=== PATIENT | female | born 1990 | race Caucasian/White ===

== ENCOUNTER 2022-01-12 09:29 | Outpatient (CLI) | payer BC ==
[2022-01-12 10:30] LABS: Appearance,Urine Clear (Clear); Bacteria,Urine Rare /hpf; Bilirubin,Urine Negative (Negative); Blood,Urine Negative (Negative); Color,Urine Colorless; Glucose,Urine (UA) Negative (Negative); Ketones,Urine Negative (Negative); Leukocyte Esterase,Urine Moderate (Negative); Nitrite,Urine Negative (Negative); PH, Urine 6.5 (5.0-8.0); Protein,Urine Negative (Negative); Specific Gravity,Urine 1.005 (1.001-1.035); Squamous Epithelial Cell,Urine 3 /hpf (0-4); Urobilinogen,Urine <2.0 mg/dL (<2.0); WBC,Urine 2 /hpf (0-5)
[2022-01-12 10:39] LABS: Basophils % (A) 0 %; Eosinophils # (A) 0.1 k/uL (0-0.7); Eosinophils % (A) 1 %; HCT 36.4 % (34.0-46.0); HGB 12.4 gm/dL (11.4-16.0); Lymphocytes # (A) 1.8 k/uL (1.0-4.8); Lymphocytes % (A) 17 %; MCH 29.6 pg (25.0-35.0); MCHC 34.2 g/dL (31.0-37.0); MCV 86.6 fL (80.0-100.0); Mean Platelet Volume 9.2; Monocytes # (A) 0.6 k/uL (0-1.0); Monocytes % (A) 5 %; Neutrophils # (A) 7.8 k/uL (1.3-7.7); Neutrophils % (A) 75 %; Platelet Count 312 k/uL (150-450); RDW 13.1 % (11.5-15.5); WBC 10.4 k/uL (3.8-10.6)
[2022-01-12 10:55] LABS: Creatinine,Urine Random 24.8 mg/dL
[2022-01-12 10:58] LABS: ALT 12 U/L (4-34); AST 17 U/L (14-36); African American GFR (CKD) >90 (>60 ml/min/1.73 sqM); Blood Urea Nitrogen 7 mg/dL (7-17); LDH 348 U/L (313-618); Non-African American GFR(CKD) >90 (>60 ml/min/1.73 sqM)
[2022-01-12 11:21] LABS: Creatinine,Urine Random 24.8 mg/dL; Protein/Creatinine Ratio,Urine 0.444
[2022-01-12 12:04] VITALS: BP 151/105; PULSE 125; RESP 16; TEMP 98.4
--- NOTE | 2022-02-02 20:44 | P.MSEPDOC ---
Presenting Problems - Arrival Data Date of Arrival on Unit: 01/12/22 Time of Arrival on Unit: 09:29 Mode of Transport: Ambulatory - Complaint OB-Reason for Admission/Chief Complaint: Elevated Blood Pressure Medical History - Information : 1 Para: 0 Term: 0 : 0 Abortions: Spontaneous or Elective: 0 Number of Living Children: 0 - Gestational Age Gestational Age by CASANDRA (wks/days): 34 Weeks and 3 Days Review of Systems - Review of Systems Constitutional: No problems Breast: No problems ENT: No problems Cardiovascular: No problems Respiratory: No problems Gastrointestinal: No problems Genitourinary: No problems Musculoskeletal: No problems Neurological: No problems Skin: No problems Vital Signs - Temperature Temperature: 98.4 F Temperature Source: Axillary - Pulse Right Sitting Pulse Rate: 125 Pulse Assessment Method: Automatic Cuff - Respirations Respiratory Rate: 16 Oxygen Delivery Method: Room Air O2 Sat by Pulse Oximetry: 98 - Blood Pressure Right Arm Blood Pressure: 151/105 Blood Pressure Mean: 120 Blood Pressure Source: Automatic Cuff Medical Screen Scoring - Assessment - Baby A Baseline FHR: 155 Heart Rate - NICHD Category: Category I (Normal) NST: Reactive Physician Notification - Physician Notified Physician Notified Date: 01/12/22 Physician Notified Time: 11:32 Physician: Elle Villeda New Order Received: Yes (d/c home) - Notification Comment Comment: procardia 30mg to be called in today. Pt has appt in office tomorrow am Maternal Triage Index - Urgent/Priority 2 Urgent Priority 2: Yes Provider Notified: Elle Villeda Provider Notified Time: 10:02 Criteria Met for Priority 2: reactive nst, bps 130-140's/80-90's, with two 150/100's. non-pitting edema, previous headache, relieved with baby aspirin this am. P/C ratio 0.444, all other labs wnl. Disposition - Disposition OB Disposition: Discharge to home, Written follow up instructions reviewed Discharge Date: 01/12/22 Discharge Time: 11:43 I agree with the RN Medical Screening Exam: Yes Physician's MSE Comment: I have neither seen nor examined the patient. Case reviewed; plan agreed upon as documented in EMR&OBIX.: Yes Diagnosis: UNSP TRACT INFECTION IN , THIRD TRIMESTER
== END 2022-01-12 11:43 | disposition home or self-care (01) ==
LOC: FBPOP 09:29
PROVIDERS: ATTEND Obstetrics & Gynecology
DX: O26.893 Other specified pregnancy related conditions, third trimester (principal); Z3A.34 34 weeks gestation of pregnancy; O23.43 Unspecified infection of urinary tract in pregnancy, third trimester
CPT/HCPCS: 59025; 81001; 82565; 82570; 83615; 84156; 84450; 84460; 84520; 84550; 85025; 99215

== ENCOUNTER 2022-02-02 05:54 | Inpatient (IN) | payer BC ==
[2022-02-02] MEDS ORDERED: LIDOCAINE 0.5% (PF) 5 MG/ML (50 ML SDV) SQ PRN ×2 (06:05→08:23)
[2022-02-02] MEDS ORDERED: TERBUTALINE 1 MG/ML VIAL SQ PRN ×2 (06:05→08:23)
[2022-02-02] MEDS ORDERED: OXYTOCIN 30 UNITS/500 ML NS 30 UNIT in SALINE 1 500ML.BAG IV SCH ×2 (06:15→22:45)
[2022-02-02] MEDS: LACTATED RINGERS 1,000 ML IV SCH ×4 (06:28→19:08)
[2022-02-02 06:47] LABS: Basophils % (A) 0 %; Eosinophils # (A) 0.1 k/uL (0-0.7); Eosinophils % (A) 1 %; HCT 35.7 % (34.0-46.0); HGB 12.2 gm/dL (11.4-16.0); Lymphocytes # (A) 3.2 k/uL (1.0-4.8); Lymphocytes % (A) 26 %; MCH 29.1 pg (25.0-35.0); MCHC 34.1 g/dL (31.0-37.0); MCV 85.2 fL (80.0-100.0); Mean Platelet Volume 9.2; Monocytes # (A) 0.8 k/uL (0-1.0); Monocytes % (A) 6 %; Neutrophils # (A) 7.8 k/uL (1.3-7.7); Neutrophils % (A) 64 %; Platelet Count 355 k/uL (150-450); RBC 4.18 m/uL (3.80-5.40); RDW 12.5 % (11.5-15.5); WBC 12.3 k/uL (3.8-10.6)
[2022-02-02 08:01] LABS: ALT 11 U/L (4-34); AST 19 U/L (14-36); African American GFR (CKD) >90 (>60 ml/min/1.73 sqM); Albumin 3.2 g/dL (3.5-5.0); Alkaline Phosphatase 157 U/L (38-126); Anion Gap 6 mmol/L; Blood Urea Nitrogen 9 mg/dL (7-17); Calcium 8.6 mg/dL (8.4-10.2); Carbon Dioxide 19 mmol/L (22-30); Chloride 110 mmol/L (98-107); Glucose 78 mg/dL (74-99); Non-African American GFR(CKD) >90 (>60 ml/min/1.73 sqM); Potassium 4.1 mmol/L (3.5-5.1); Sodium 135 mmol/L (137-145); Total Bilirubin 0.3 mg/dL (0.2-1.3); Total Protein 5.8 g/dL (6.3-8.2); Uric Acid 5.6 mg/dL (3.7-7.4)
--- NOTE | 2022-02-02 08:24 | P.HPOB ---
History of Present Illness H&P Date: 02/02/22 Chief Complaint: Medical Induction of Labor Ms. Salazar is a 31 year old at 37 weeks, 3 days with EDC of 02/20/2022 who presents for medical induction of labor for pre-eclampsia without severe features. Blood pressures began to be elevated earlier in the third trimester, she was evaluated with [facility] labs which showed an elevated urine protein creatinine ratio of . The patient was started on Procardia XL 30mg daily on 01/15 for intermittently severe-range blood pressures. Blood pressures have been normotensive to mild-range after starting this medications. Otherwise, has been uncomplicated. labs show blood type O positive, antibody negative, rubella NON-IMMUNE, HBsAG neg, GBS positive, HIV non-reactive, RPR non-reactive, 1 hr GTT 138. Past Medical History Past Medical History: No Reported History History of Any Multi-Drug Resistant Organisms: None Reported Past Surgical History: Tonsillectomy Additional Past Surgical History / Comment(s): left ankle surgery Past Anesthesia/Blood Transfusion Reactions: No Reported Reaction Past Psychological History: No Psychological Hx Reported Smoking Status: Never smoker Past Alcohol Use History: None Reported Past Drug Use History: None Reported - Past Family History Mother Family Medical History: Cancer Additional Family Medical History / Comment(s): breast Medications and Allergies Home Medications Medication Instructions Recorded Confirmed Type Aspirin 81 mg PO DAILY 01/12/22 02/02/22 History Iron 1 tab PO DAILY 01/12/22 02/02/22 History Vit No.179/Iron/Folic 1 tab PO DAILY 01/12/22 02/02/22 History [ Tablet] NIFEdipine [Procardia] 30 mg PO DAILY 02/02/22 02/02/22 History Allergies Allergy/AdvReac Type Severity Reaction Status Date / Time No Known Allergies Allergy Verified 02/02/22 06:04 Exam Vital Signs Temp Pulse Resp BP Pulse Ox 02/02/22 06:21 98.5 F 97 18 137/105 99 Intake and Output 02/01/22 02/02/22 02/02/22 22:59 06:59 14:59 Other: Weight 92.986 kg Focused physical exam is performed - OBG Physical Exam Cervix: Cervix closed, long, and high. [employer] catheter is placed, 60 cc in each balloon. Results Result Diagrams: 02/02/22 06:20 02/02/22 07:03 Abnormal Lab Results - Last 24 Hours (Table) 02/02/22 02/02/22 Range/Units 06:20 07:03 WBC 12.3 H (3.8-10.6) k/uL Neutrophils # 7.8 H (1.3-7.7) k/uL Sodium 135 L (137-145) mmol/L Chloride 110 H (98-107) mmol/L Carbon Dioxide 19 L (22-30) mmol/L Alkaline Phosphatase 157 H (38-126) U/L Total Protein 5.8 L (6.3-8.2) g/dL Albumin 3.2 L (3.5-5.0) g/dL Assessment and Plan Assessment: 31 y/o at 37 weeks, 3 days presenting for mIOL for pre-eclamspia without severe-features Plan: - Cooks catheter placed, maintain for 12 hours or until its falls out of place. Low dose oxytocin. NPO, mIVF. IV stadol prn pain. Continuous EFM. Time with Patient: Greater than 30
[2022-02-02] MEDS ORDERED: BUTORPHANOL 1 MG/ML 1 ML VIAL IV PRN (08:26)
[2022-02-02] MEDS ORDERED: PENICILLIN G POTASSIUM 5,000,000 UNIT in DEXTROSE 5% IN WATER 100 ML IVPB STA ×2 (11:17)
[2022-02-02 12:17] LABS: Appearance,Urine Clear (Clear); Bilirubin,Urine Negative (Negative); Blood,Urine Negative (Negative); Color,Urine Light Yellow; Glucose,Urine (UA) Negative (Negative); Ketones,Urine Negative (Negative); Leukocyte Esterase,Urine Negative (Negative); Nitrite,Urine Negative (Negative); PH, Urine 5.5 (5.0-8.0); Protein,Urine Negative (Negative); Specific Gravity,Urine 1.007 (1.001-1.035); Urobilinogen,Urine <2.0 mg/dL (<2.0)
[2022-02-02 12:29] LABS: Creatinine,Urine Random 48.2 mg/dL; Protein/Creatinine Ratio,Urine 0.207
[2022-02-02] MEDS: PENICILLIN G POTASSIUM 2,500,000 UNIT in DEXTROSE 5% IN WATER 100 ML IVPB SCH ×4 (16:47→23:54)
[2022-02-02] MEDS ORDERED: SODIUM CHLORIDE 0.9% 100 ML BAG ONE (18:22)
[2022-02-02] MEDS ORDERED: fentaNYL (PF) 50 MCG/ML 5 ML AMP ONE (18:22)
[2022-02-02] MEDS ORDERED: ROPIVACAINE 5 MG/ML 20 ML AMPULE ONE (18:22)
[2022-02-02] MEDS ORDERED: diphenhydrAMINE 50 MG/ML 1 ML VIAL IVP PRN ×3 (19:19→22:35)
[2022-02-02] MEDS ORDERED: MORPHINE SULFATE 2 MG/ML SYRINGE IVP PRN (19:19)
[2022-02-02] MEDS ORDERED: NALOXONE 0.4 MG/ML 1 ML VIAL IV PRN (19:19)
[2022-02-02] MEDS ORDERED: ONDANSETRON 4 MG/2 ML VIAL IVP PRN (19:19)
--- NOTE | 2022-02-02 22:34 | P.PROBDLV ---
Vaginal Delivery Note - . Vaginal Delivery Note: DATE OF SERVICE: 02/02/2022 PROCEDURE: Spontaneous Vaginal Delivery ATTENDING: Dr. Elle Villeda MD ESTIMATED BLOOD LOSS: 200 mL FINDINGS: VFI, Apgars 8/9 PROCEDURE: Patient was a 31 y/o at 37 weeks, 3 days being medically induced for pre-eclamspia without severe features. Induction was started with a cooks catheter and low dose oxytocin. After the cooks catheter was removed the patient was 5/90/-2 and AROM was undertaken for clear fluid. Within 90 minutes the patient was completely dilated. She pushed the head effectively. Head delivered without difficulty followed by shoulders and body over intact perineum. Infant placed on maternal abdomen and bulb suctioned. Cord was clamped and cut after a 30 second delay. Placenta delivered whole with gentle cord traction. Oxytocin was started to facilitate uterine tone. Uterine fundus firm and bleeding minimal upon fundal massage. Perineal inspection revealed second degree laceration repaired in the usual fashion with 2-0 Polysorb. Patient stable .
[2022-02-02] MEDS ORDERED: HYDROcodone/APAP 5-325MG 1 EACH TAB PO PRN (22:35)
[2022-02-02] MEDS ORDERED: HYDROCORTISONE 2.5% RECTAL CREAM 30 GM TUBE RECTAL PRN (22:35)
[2022-02-02] MEDS ORDERED: LANOLIN CREAM 5 GM TUBE TOPICAL PRN (22:35)
[2022-02-02] MEDS ORDERED: ACETAMINOPHEN TAB 325 MG TAB PO PRN (22:35)
[2022-02-02] MEDS ORDERED: diphenhydrAMINE 25 MG CAP PO PRN (22:35)
[2022-02-02] MEDS ORDERED: SIMETHICONE 80 MG CHEWABLE PO PRN (22:35)
[2022-02-02] MEDS ORDERED: BENZOCAINE/MENTHOL SPRAY 1 GM/SPRAY AEROSOL TOPICAL PRN (22:35)
[2022-02-02] MEDS ORDERED: ZOLPIDEM 5 MG TAB PO PRN (22:35)
[2022-02-02] MEDS ORDERED: diphenhydrAMINE 50 MG CAP PO PRN (22:35)
[2022-02-02] MEDS: IBUPROFEN 600 MG TAB PO PRN (23:04)
[2022-02-02] MEDS ORDERED: hydrALAZINE HCL 20 MG/ML 1 ML VIAL IVP STA (23:18)
[2022-02-02] MEDS ORDERED: MAGNESIUM SULFATE GM 6 GM in SODIUM CHLORIDE 0.9% 100 ML IVPB ONE (23:30)
[2022-02-03] MEDS: MAGNESIUM SULFATE-WATER PMX 20 GM in WATER FOR INJECTION 1 500ML.BAG IV SCH ×3 (00:08→21:09)
[2022-02-03] MEDS: PENICILLIN G POTASSIUM 2,500,000 UNIT in DEXTROSE 5% IN WATER 100 ML IVPB SCH ×2 (00:09)
[2022-02-03] MEDS: LACTATED RINGERS 1,000 ML IV SCH (01:59)
[2022-02-03 06:13] LABS: Basophils % (A) 0 %; Eosinophils # (A) 0.1 k/uL (0-0.7); Eosinophils % (A) 0 %; HCT 33.9 % (34.0-46.0); HGB 11.6 gm/dL (11.4-16.0); Lymphocytes # (A) 2.4 k/uL (1.0-4.8); Lymphocytes % (A) 13 %; MCH 29.2 pg (25.0-35.0); MCHC 34.2 g/dL (31.0-37.0); MCV 85.3 fL (80.0-100.0); Mean Platelet Volume 9.4; Monocytes # (A) 1.3 k/uL (0-1.0); Monocytes % (A) 7 %; Neutrophils # (A) 14.8 k/uL (1.3-7.7); Neutrophils % (A) 78 %; Platelet Count 365 k/uL (150-450); RBC 3.97 m/uL (3.80-5.40); RDW 12.6 % (11.5-15.5)
[2022-02-03] MEDS: SENNOSIDES-DOCUSATE SODIUM 1 EACH TAB PO SCH ×2 (08:47→20:32)
--- NOTE | 2022-02-03 09:47 | P.PNOBGVD ---
Subjective - Subjective Principal diagnosis: Normal vaginal delivery Interval history: Immediately after delivery yesterday evening the patient began to have persistent severe-range blood pressures and preeclampsia with severe features was diagnosed. She was started on Magnesium Sulfate and given 10mg of IV hydralazine. The patient is doing well this morning, denies headache, changes in vision, RUQ pain. She is tolerating PO without nausea or vomiting. She's ambulating normally, voiding without difficulty, passing flatus, without difficulty. Lochia is minimal. She denies chest pain, shortness of breath, fevers, chills, pain/swelling in the legs. Objective - Latest Vital Signs Latest vital signs: Vital Signs Temp Pulse Resp BP Pulse Ox 02/03/22 09:00 108 H 16 138/89 02/03/22 08:00 98.7 F 112 H 16 154/93 100 02/03/22 06:00 98.1 F 114 H 18 140/78 99 02/03/22 05:00 101 H 18 124/66 02/03/22 04:00 112 H 18 134/74 99 02/03/22 03:00 134 H 16 124/73 97 02/03/22 02:00 136 H 16 126/71 97 02/03/22 01:00 131 H 18 143/81 97 02/03/22 00:35 127 H 18 145/69 99 02/03/22 00:20 97.9 F 129 H 18 142/72 98 02/03/22 00:19 98 02/03/22 00:05 129 H 18 144/71 98 02/03/22 00:00 16 02/02/22 23:54 121 H 16 156/88 02/02/22 23:50 106 H 16 161/91 99 02/02/22 23:24 123 H 16 173/83 02/02/22 23:09 98.8 F 112 H 16 174/83 02/02/22 22:54 98.7 F 118 H 16 183/80 02/02/22 22:39 117 H 16 186/82 02/02/22 22:24 98.2 F 126 H 18 169/78 02/02/22 19:19 18 Intake and Output 02/02/22 02/03/22 02/03/22 22:59 06:59 14:59 Intake Total 1167 Output Total 200 755 Balance -200 412 Intake: Intake, IV Titration 167 Amount Oxytocin 30 Units/500 ml 167 Ns 30 unit In Saline 1 500ml.bag @ Per Protocol IV .Q0M [facility] Rx#:[id number] Oral 1000 Output: Urine 200 650 Output, Quantitative 105 Blood Loss Other: # Voids 0 1 - Exam Extremities: Present: normal Abdomen: Present: normal appearance, soft Uterus: Present: normal, firm - Labs Labs: Abnormal Lab Results - Last 24 Hours (Table) 02/03/22 Range/Units 05:57 WBC 19.0 H (3.8-10.6) k/uL Hct 33.9 L (34.0-46.0) % Neutrophils # 14.8 H (1.3-7.7) k/uL Monocytes # 1.3 H (0-1.0) k/uL Assessment and Plan Assessment: 31 y.o now PPD#1 s/p normal vaginal delivery after mIOL for preclampsia without severe features, now with new diagnosis of PreE WITH severe features Plan: 1. PreE w/ SF: currently on Mag Sulfate x24 hours. Continue Procardia XL 30mg qDay. BPs normotensive to mild-range overnight s/p IV Hydralazine x1. Continue to monitor BPs, signs, and symptoms 2. . Patient meeting all milestones appropriately. 3. Viable female . Doing well at the bedside, nursing well. Dispo: Will anticipate discharge home late tomorrow evening if BPs well controlled after Mag Sulfate is discontinued.
[2022-02-03] MEDS: IBUPROFEN 600 MG TAB PO PRN ×2 (10:58→16:14)
[2022-02-03] MEDS: NIFEdipine XL 30 MG TAB.ER.24 PO SCH (10:58)
[2022-02-04] MEDS: LACTATED RINGERS 1,000 ML IV SCH (01:48)
[2022-02-04] MEDS: IBUPROFEN 600 MG TAB PO PRN (07:21)
[2022-02-04] MEDS: NIFEdipine XL 30 MG TAB.ER.24 PO SCH (09:00)
[2022-02-04] MEDS: SENNOSIDES-DOCUSATE SODIUM 1 EACH TAB PO SCH (09:01)
--- NOTE | 2022-02-04 13:13 | P.PNOBGVD ---
Subjective - Subjective Principal diagnosis: Normal vaginal delivery Patient reports: Reports appetite normal, Reports voiding normally, Reports pain well controlled, Reports ambulating normally [place]: doing well, nursing well, other (receiving phototherapy) Objective - Latest Vital Signs Latest vital signs: Vital Signs Temp Pulse Resp BP Pulse Ox 02/04/22 00:00 98.7 F 92 16 133/76 100 02/03/22 22:00 105 H 16 148/78 100 02/03/22 21:00 101 H 16 140/79 100 02/03/22 20:00 104 H 16 157/84 100 02/03/22 18:00 103 H 16 142/75 02/03/22 15:30 97.8 F 100 16 138/71 Intake and Output 02/03/22 02/04/22 02/04/22 22:59 06:59 14:59 Intake Total 500 Output Total 1750 Balance -1250 Intake: Intake, IV Titration 500 Amount Magnesium Sulfate-Water 500 Pmx 20 gm In Water For Injection 1 500ml.bag @ 2 GM/HR 50 mls/hr IV .Q10H [facility] Rx#:[id number] Output: Urine 1750 Other: # Voids 1 0 1 - Exam Extremities: Present: normal Abdomen: Present: normal appearance, soft Uterus: Present: normal, firm Assessment and Plan Assessment: 31 y.o now PPD#2 s/p normal vaginal delivery after mIOL for preclampsia without severe features, now with new diagnosis of PreE WITH severe features Plan: 1. PreE w/ SF: s/p Mag Sulfate. Continue Procardia XL 30mg qDay. BPs normotensive to mild-range overnight. 2. . Patient meeting all milestones appropriately. 3. Viable female infant. Doing well at the bedside, nursing well. Finishing photothereapy today. Dispo: Will anticipate discharge home late this afternoon as long as BPs less than or equal to 150/90
--- NOTE | 2022-02-04 13:21 | P.DS ---
Providers Date of admission: 02/02/22 05:54 Expected date of discharge: 02/04/22 Attending physician: Elle Villeda MD Primary care physician: Stated None Hospital Course: 31 y/o now s/p medical induction of labor for preeclampsia without severe features. The patient progressed well and went on to have a normal vaginal delivery. Shortly after delivery she developed preeclampsia with severe features and was started on 24 hours of magnesium sulfate for seizure prophylaxis. She was continued on her dose of daily procardia xl 30 mg. After the Mag was discontinued, blood pressure were normotensive to mild range. She was asymptomatic and meeting all milestones appropriately. She is discharge on day 2 with plans to follow up in the office in 1 week for BP check and in 6 weeks for appointment. Patient Condition at Discharge: Good Plan - Discharge Summary Discharge Rx Participant: No New Discharge Prescriptions: New RX: NIFEdipine XL [Procardia XL] 30 mg PO DAILY #30 tab RX: Ibuprofen [Motrin] 600 mg PO Q6HR PRN #30 tab PRN Reason: Mild Pain (Scale 1 To 3) RX: Acetaminophen Tab [Tylenol] 650 mg PO Q4HR PRN #30 tab PRN Reason: Mild Pain Or Fever >= 100.5 Discontinued RX: Iron 1 tab PO DAILY Vit No.179/Iron/Folic [ Tablet] 1 tab PO DAILY RX: Aspirin 81 mg PO DAILY RX: NIFEdipine [Procardia] 30 mg PO DAILY Discharge Medication List RX: Acetaminophen Tab [Tylenol] 650 mg PO Q4HR PRN #30 tab 02/04/22 [Rx] RX: Ibuprofen [Motrin] 600 mg PO Q6HR PRN #30 tab 02/04/22 [Rx] RX: NIFEdipine XL [Procardia XL] 30 mg PO DAILY #30 tab 02/04/22 [Rx] Follow up Appointment(s)/Referral(s): Elle Villeda MD [STAFF PHYSICIAN] - 1 Week (Blood Pressure Check) Patient Instructions/Handouts: Depression (DC), Caring for Your Baby (DC), Your Baby (DC), How to Hold and Breastfeed Your Baby (DC), and Nipple Soreness (DC), How to Increase Your Milk Supply (DC), How Long Should I Breastfeed and How do I Wean? (DC), Preeclampsia During (DC), Bleeding (DC), Vaginal Delivery (DC) Activity/Diet/Wound Care/Special Instructions: Activity as tolerated. Pelvic rest for 6 weeks. Discharge Disposition: HOME SELF-CARE
[2022-02-04 15:57] VITALS: RESP 16
[2022-02-04 16:50] VITALS: BP 149/65; PULSE 88; TEMP 98.7
== END 2022-02-04 18:45 | disposition home or self-care (01) | DRG 807 ==
LOC: 4FBP 05:54
PROVIDERS: ADMIT Obstetrics & Gynecology; ATTEND Obstetrics & Gynecology
PROC: 10E0XZZ Delivery of Products of Conception, External Approach (ICD-10-PCS; principal; 2022-02-02)
PROC: 0KQM0ZZ Repair Perineum Muscle, Open Approach (ICD-10-PCS; 2022-02-02)
PROC: 3E033VJ Introduction of Other Hormone into Peripheral Vein, Percutaneous Approach (ICD-10-PCS; 2022-02-02)
PROC: 10907ZC Drainage of Amniotic Fluid, Therapeutic from Products of Conception, Via Natural or Artificial Opening (ICD-10-PCS; 2022-02-02)
PROC: 3E033VJ Introduction of Other Hormone into Peripheral Vein, Percutaneous Approach (ICD-10-PCS; 2022-02-02)
DX: O14.14 Severe pre-eclampsia complicating childbirth (principal); Z37.0 Single live birth; O62.3 Precipitate labor; O70.1 Second degree perineal laceration during delivery; Z3A.37 37 weeks gestation of pregnancy; Z79.82 Long term (current) use of aspirin; Z79.899 Other long term (current) drug therapy
CPT/HCPCS: 80053; 81003; 82570; 84156; 84550; 85025; 86850; 86900; 86901; 88307

== ENCOUNTER 2023-12-02 12:18 | Outpatient (CLI) | payer BC ==
[2023-12-02] MEDS: LACTATED RINGERS 1,000 ML IV ONE ×2 (13:23→14:43)
[2023-12-02 13:38] LABS: Basophils % (A) 0 %; Eosinophils % (A) 0 %; HGB 11.3 gm/dL (11.4-16.0); Lymphocytes # (A) 1.3 k/uL (1.0-4.8); Lymphocytes % (A) 7 %; MCH 28.2 pg (25.0-35.0); MCHC 33.2 g/dL (31.0-37.0); Mean Platelet Volume 8.3; Monocytes # (A) 1.1 k/uL (0-1.0); Monocytes % (A) 6 %; Neutrophils % (A) 84 %; Platelet Count 419 k/uL (150-450); RDW 12.4 % (11.5-15.5); WBC 17.8 k/uL (3.8-10.6)
[2023-12-02 14:16] LABS: Appearance,Urine Cloudy (Clear); Bacteria,Urine Rare /hpf; Bilirubin,Urine Negative (Negative); Blood,Urine Small (Negative); Color,Urine Yellow; Glucose,Urine (UA) Negative (Negative); Ketones,Urine 4+ (Negative); Leukocyte Esterase,Urine Small (Negative); Mucus,Urine Many /hpf; Nitrite,Urine Negative (Negative); PH, Urine 6.5 (5.0-8.0); Protein,Urine 2+ (Negative); RBC,Urine 9 /hpf (0-5); Specific Gravity,Urine 1.029 (1.001-1.035); Squamous Epithelial Cell,Urine 5 /hpf (0-4); Urobilinogen,Urine <2.0 mg/dL (<2.0); WBC,Urine 6 /hpf (0-5)
[2023-12-02 16:24] VITALS: BP 133/91; PULSE 127; RESP 18; TEMP 98.1
--- NOTE | 2023-12-08 08:58 | P.MSEPDOC ---
Presenting Problems - Arrival Data Date of Arrival on Unit: 12/02/23 Time of Arrival on Unit: 12:18 Mode of Transport: Ambulatory - Complaint OB-Reason for Admission/Chief Complaint: Possible Onset of Labor, Decreased Movement Comment: cramping since yesterday, decreasead movement, pt has not felt well for the last 3 days and has had body aches, chills and fever. Medical History - Information : 2 Para: 1 Term: 1 : 0 Abortions: Spontaneous or Elective: 0 Number of Living Children: 1 - Gestational Age Gestational Age by CASANDRA (wks/days): 30 Weeks and 2 Days Review of Systems - Review of Systems Constitutional: No problems Breast: No problems ENT: No problems Cardiovascular: No problems Respiratory: No problems Gastrointestinal: No problems Genitourinary: No problems Musculoskeletal: No problems Neurological: No problems Skin: No problems Vital Signs - Temperature Temperature: 98.1 F Temperature Source: Temporal Artery Scan - Pulse Right Sitting Pulse Rate: 127 Pulse Assessment Method: Pulse Oximetry - Respirations Respiratory Rate: 18 Oxygen Delivery Method: Room Air O2 Sat by Pulse Oximetry: 98 - Blood Pressure Right Arm Blood Pressure: 133/91 Blood Pressure Mean: 105 Blood Pressure Source: Automatic Cuff - Comment Vital Signs Comment: repeat bp 125/79, pulse decreased to 106 bpm Medical Screen Scoring - Cervical Exam Dilation (cm): 0 Membranes: Intact - Uterine Contractions Frequency From (mins): 5 Frequency To (mins): 6 Duration From (seconds): 80 Duration To (seconds): 100 Intensity: Mild Resting: Soft to palpation - Assessment - Baby A Baseline FHR: 140 Heart Rate - NICHD Category: Category I (Normal) NST: Reactive Physician Notification - Physician Notified Physician Notified Date: 12/02/23 Physician Notified Time: 15:48 Physician: Elle Villeda Order Received: Yes (d/c home) Maternal Triage Index - Prompt/Priority 3 Prompt Priority 3: Yes Criteria Met for Priority 3: GA 30 2/7, cramping and decreased movement, reactive nst, urine +4 ketones, iv hydration Disposition - Disposition OB Disposition: Discharge to home, Written follow up instructions reviewed Discharge Date: 12/02/23 Discharge Time: 16:03 I agree with the RN Medical Screening Exam: Yes Physician's MSE Comment: I have neither seen nor examined the patient Case reviewed; plan agreed upon as documented in EMR&OBIX.: Yes Diagnosis: RELATED CONDITIONS, UNSPECIFIED, THIRD TRIMESTER
== END 2023-12-02 16:03 | disposition home or self-care (01) ==
LOC: FBPOP 12:18
PROVIDERS: ATTEND Obstetrics & Gynecology
CPT/HCPCS: 36415; 59025; 81001; 85025; 87086; 87636; 96360; 96361; 99214

== ENCOUNTER 2023-12-03 12:45 | Outpatient (CLI) | payer BC ==
[2023-12-03 14:01] LABS: Appearance,Urine Cloudy (Clear); Bacteria,Urine Rare /hpf; Bilirubin,Urine Negative (Negative); Blood,Urine Moderate (Negative); Color,Urine Yellow; Glucose,Urine (UA) Negative (Negative); Ketones,Urine 1+ (Negative); Leukocyte Esterase,Urine Small (Negative); Mucus,Urine Moderate /hpf; Nitrite,Urine Negative (Negative); Protein,Urine Trace (Negative); RBC,Urine 3 /hpf (0-5); Specific Gravity,Urine 1.019 (1.001-1.035); Squamous Epithelial Cell,Urine 6 /hpf (0-4); Urobilinogen,Urine <2.0 mg/dL (<2.0); WBC,Urine 3 /hpf (0-5)
[2023-12-03] MEDS: BETAMET ACET-BETAMETH SOD PHOS 6 MG/ML MDV IM SCH (14:44)
--- NOTE | 2023-12-03 14:55 | P.HPOB ---
History of Present Illness H&P Date: 12/03/23 Chief Complaint: IUP @ 30 3/7, PT CTX This is a 33-year-old 2 para 1-0-0-1 at 30-3/7 weeks that presented to labor and delivery with complaints of increasing contraction pain overnight. Patient was seen in triage yesterday for suspected viral illness. Patient had n oted body aches and underwent COVID/flu swabs. Both swabs were negative. Patient did have a urine completed which was significant for 4+ ketones, urinary tract infection. She was treated for a urinary tract infection. Patient was discharged home comfortable without complaints of contractions. Patient states through the night she became more uncomfortable and started noting contractions every 5 minutes. Patient represented to OB triage. Patient denies loss of fluid, she notes good movement. Estimated due date of 02/07 based on 7-week ultrasound. [employer] history G2, P1 Spontaneous vaginal delivery induced at 37 weeks for gestational hypertension Current On blood work this patient has a blood type of O+, rubella status nonimmune, hepatitis B surface engine negative, HIV negative, she did receive her Tdap on 11/07. Review of Systems Constitutional: Reports fatigue, Denies chills, Denies fever Ears, nose, mouth and throat: Denies headache Cardiovascular: Reports leg edema Respiratory: Denies dyspnea Gastrointestinal: Denies constipation, Denies diarrhea, Denies nausea, Denies vomiting Genitourinary: Reports Past Medical History Past Medical History: No Reported History History of Any Multi-Drug Resistant Organisms: None Reported Past Surgical History: Tonsillectomy Additional Past Surgical History / Comment(s): left ankle surgery Past Anesthesia/Blood Transfusion Reactions: No Reported Reaction Smoking Status: Never smoker - Past Family History Mother Family Medical History: Cancer Additional Family Medical History / Comment(s): breast Medications and Allergies Home Medications Medication Instructions Recorded Confirmed Type Acetaminophen Tab [Tylenol] 1,000 mg PO Q4HR PRN 12/02/23 12/03/23 History Aspirin 81 mg PO DAILY 12/02/23 12/03/23 History Vit No.179/Iron/Folic 1 tab PO DAILY 12/02/23 12/03/23 History [ Tablet] Allergies Allergy/AdvReac Type Severity Reaction Status Date / Time No Known Allergies Allergy Verified 12/03/23 13:01 Exam Osteopathic Statement: *. No significant issues noted on an osteopathic structural exam other than those noted in the History and Physical/Consult. Intake and Output 12/02/23 12/03/23 12/03/23 22:59 06:59 14:59 Other: Weight 82.554 kg Targeted physical exam is performed this date General Is a well-nourished well- developed female in no acute distress, breathing is nonlabored, heart has a regular and rhythm, abdomen is gravid and appropriate for gestational age, on cervical exam she is 3-4/70/-3 station vertex presentation by ultrasound, amniotic sac is palpated. heart tones are noted to be category 1 and she is dior every 6 minutes. She does not appear uncomfortable with contractions. Results Abnormal Lab Results - Last 24 Hours (Table) 12/03/23 Range/Units 13:46 Urine Appearance Cloudy H (Clear) Urine Protein Trace H (Negative) Urine Ketones 1+ H (Negative) Urine Blood Moderate H (Negative) Ur Leukocyte Esterase Small H (Negative) Ur Squamous Epith Cells 6 H (0-4) /hpf Urine Bacteria Rare H (None) /hpf Urine Mucus Moderate H (None) /hpf Assessment and Plan (1) with 30 completed weeks gestation Current Visit: Yes Status: Acute Code(s): Z3A.30 - 30 WEEKS GESTATION OF SNOMED Code(s): 56869945 (2) contractions Current Visit: Yes Status: Acute Code(s): O47.00 - FALSE LABOR BEFORE 37 COMPLETED WEEKS OF GEST, UNSP TRI SNOMED Code(s): 075116752 (3) labor Current Visit: Yes Status: Acute Code(s): O60.00 - LABOR WITHOUT DELIVERY, UNSPECIFIED TRIMESTER SNOMED Code(s): 8060463 Plan: 33-year-old G2, P1 at 30-3/7 weeks that presents to labor and delivery with complaints of increasing contraction pain over the night. Patient was seen yesterday and diagnosed with a urinary tract infection, cervix was closed at that time. Given increasing contractions and change in cervical dilation discussed with patient the need for transfer to tertiary care center. Patient is given betamethasone x 1, magnesium will be started. Patient is counseled on transfer of care and early gestational age. All questions are answered. [facility] is contacted and Dr. Kang has accepted the transfer.
[2023-12-03] MEDS: MAGNESIUM SULFATE-WATER PMX 4 GM in WATER FOR INJECTION 1 100ML.BAG IVPB ONE (15:06)
[2023-12-03] MEDS: MAGNESIUM SULFATE-WATER PMX 20 GM in WATER FOR INJECTION 1 500ML.BAG IV SCH (15:31)
[2023-12-03] MEDS: LACTATED RINGERS 1,000 ML IV SCH (15:32)
[2023-12-03 16:27] VITALS: BP 133/92; PULSE 92; RESP 16; TEMP 96.1
== END 2023-12-03 16:00 | disposition other institution (70) ==
LOC: FBPOP 12:45
PROVIDERS: ATTEND Obstetrics & Gynecology Obstetrics
DX: O60.03 Preterm labor without delivery, third trimester (principal); Z3A.30 30 weeks gestation of pregnancy
CPT/HCPCS: 59025; 99215; 96361; 96365; 96372; 81001; J3475 ×2; J0702

== ENCOUNTER 2024-01-21 06:00 | Inpatient (IN) | payer BC ==
[2024-01-21] MEDS ORDERED: TRANEXAMIC 1,000 MG/100ML-NACL 1,000 MG in EMPTY BAG 1 BAG IV PRN (06:15)
[2024-01-21] MEDS ORDERED: OXYTOCIN 10 UNIT/ML 1 ML VIAL IM PRN (06:15)
[2024-01-21] MEDS ORDERED: TERBUTALINE 1 MG/ML VIAL SQ PRN (06:15)
[2024-01-21] MEDS ORDERED: CARBOPROST TROMETHAMINE 250 MCG/ML 1 ML AMP IM PRN (06:15)
[2024-01-21] MEDS ORDERED: miSOPROStoL 200 MCG TAB PO PRN (06:15)
[2024-01-21] MEDS ORDERED: miSOPROStoL 200 MCG TAB RECTAL PRN (06:15)
[2024-01-21] MEDS ORDERED: METHYLERGONOVINE 0.2 MG/ML 1 ML AMP IM PRN (06:15)
[2024-01-21] MEDS: OXYTOCIN 30 UNITS/500 ML NS 30 UNIT in SALINE 1 500ML.BAG IV SCH (06:30)
[2024-01-21] MEDS: LACTATED RINGERS 1,000 ML IV SCH (06:32)
[2024-01-21] MEDS: PENICILLIN G POTASSIUM 5,000,000 UNIT in DEXTROSE 5% IN WATER 100 ML IVPB STA (06:45)
[2024-01-21 06:47] LABS: Basophils # (A) 0.1 k/uL (0-0.2); Basophils % (A) 0 %; Eosinophils # (A) 0.1 k/uL (0-0.7); Eosinophils % (A) 1 %; HCT 39.5 % (34.0-46.0); HGB 13.1 gm/dL (11.4-16.0); Lymphocytes % (A) 28 %; MCH 28.6 pg (25.0-35.0); MCHC 33.1 g/dL (31.0-37.0); MCV 86.5 fL (80.0-100.0); Mean Platelet Volume 8.8; Monocytes # (A) 0.9 k/uL (0-1.0); Monocytes % (A) 7 %; Neutrophils # (A) 8.7 k/uL (1.3-7.7); Neutrophils % (A) 62 %; Platelet Count 385 k/uL (150-450); RBC 4.57 m/uL (3.80-5.40); RDW 14.5 % (11.5-15.5)
[2024-01-21] MEDS ORDERED: ROPIVACAINE 5 MG/ML 30 ML VIAL ONE (07:43)
[2024-01-21] MEDS ORDERED: fentaNYL (PF) 50 MCG/ML 5 ML AMP ONE (07:43)
[2024-01-21] MEDS ORDERED: SODIUM CHLORIDE 0.9% 250 ML BAG ONE (07:43)
--- NOTE | 2024-01-21 08:56 | P.HPOB ---
History of Present Illness H&P Date: 01/21/24 Chief Complaint: Medical induction of labor Ms. Salazar is a 33 year old at 37 weeks and 3 days presenting for medical induction of labor for chronic hypertension with superimposed pre- eclampsia without severe features. Her was complicated by labor at 30 weeks for which she received betamethasone, mag sulfate for neuroprotection, and tocolytics at an outside facility. She was ultimately discharged once her contractions subsided and her cervical exam was stable. She was followed outpatient with once weekly labs and twice weekly NSTs for pre-eclampsia without severe features. The fetus is estimated to be average for gestational age. Obstetric history: 1 FTVD complicated by pre-eclampsia with severe features work-up: blood type O positive, antibody screen negative, rubella non- immune, VDRL non-reactive, HBsAg negative, HIV negative, HCV non-reactive, gonorrhea negative, chlamydia negative, 1 hour GTT wnl, GBS positive. s/p Tdap in 3rd trimester. Past Medical History Past Medical History: No Reported History History of Any Multi-Drug Resistant Organisms: None Reported Past Surgical History: Adenoidectomy, Tonsillectomy Additional Past Surgical History / Comment(s): left ankle surgery Past Anesthesia/Blood Transfusion Reactions: No Reported Reaction Past Psychological History: No Psychological Hx Reported Smoking Status: Never smoker Past Alcohol Use History: None Reported Past Drug Use History: None Reported - Past Family History Mother Family Medical History: Cancer Additional Family Medical History / Comment(s): breast Medications and Allergies Home Medications Medication Instructions Recorded Confirmed Type Acetaminophen Tab [Tylenol] 1,000 mg PO Q4HR PRN 12/02/23 12/03/23 History Aspirin 81 mg PO DAILY 12/02/23 12/03/23 History Vit No.179/Iron/Folic 1 tab PO DAILY 12/02/23 12/03/23 History [ Tablet] Ferrous Sulfate [Iron] 325 mg PO 01/21/24 History Allergies Allergy/AdvReac Type Severity Reaction Status Date / Time No Known Allergies Allergy Verified 01/21/24 06:14 Exam Intake and Output 01/20/24 01/21/24 01/21/24 22:59 06:59 14:59 Other: Weight 86.183 kg Focused physical exam is performed. This is a healthy-appearing in no apparent distress. Breathing is non-labored. Abdomen is gravid and non-tender. Cervical exam is 7/80/-1 per the OB RN. Pt underwent SROM after pitocin was started. Extremities non-tender and non-edematous. heart tones are Category I and tocometer is graphing contractions every 2-4 minutes. Results Result Diagrams: 01/21/24 06:20 Abnormal Lab Results - Last 24 Hours (Table) 01/21/24 Range/Units 06:20 WBC 14.0 H (3.8-10.6) k/uL Neutrophils # 8.7 H (1.3-7.7) k/uL Assessment and Plan Assessment: 33 year old at 37 weeks and 3 days being medically induced for chronic HTN with superimposed preeclampsia without severe features Plan: Admit, clear liquid diet, pitocin per protocol, epidural prn, continuous EFM and tocometer. Anticipate vaginal delivery.
[2024-01-21] MEDS: MAGNESIUM SULFATE GM 6 GM in SODIUM CHLORIDE 0.9% 100 ML IVPB ONE (09:41)
[2024-01-21] MEDS: MAGNESIUM SULFATE-WATER PMX 20 GM in WATER FOR INJECTION 1 500ML.BAG IV SCH (10:00)
[2024-01-21] MEDS: PENICILLIN G POTASSIUM 2,500,000 UNIT in DEXTROSE 5% IN WATER 100 ML IVPB SCH (10:49)
[2024-01-21] MEDS: LIDOCAINE 0.5% (PF) 5 MG/ML (50 ML SDV) SQ PRN (12:32)
--- NOTE | 2024-01-21 12:43 | P.PROBDLV ---
Vaginal Delivery Note - . Vaginal Delivery Note: DATE OF SERVICE: 01/21/2024 PROCEDURE: Normal Vaginal Delivery ATTENDING: Dr. Elle Villeda MD ESTIMATED BLOOD LOSS: 500 mL FINDINGS: VFI, Apgars 8/9. Weight 7 poudns and 10 ounces (3475 grams) PROCEDURE: Ms. Salazar is a 33 year old at 37 weeks and 2 days presenting to labor and delivery for medical induction of labor for chronic hypertension with superimposed pre-eclampsia without severe features. The has been complicated by pre-term labor during which she was admitted to another facility for steroids, magnesium sulfate, and tocolysis. Her labor was ultimately stopped and she was discharged for outpatient surveillance. For further details, please review the admitting H&P. Pitocin was started and the patient had SROM at 715 revealing clear amniotic fluid. She had severe range blood pressures persistently, so pre-eclampsia with severe features was diagnosed and Magnesium Sulfate was given for seizure prophylaxis. She received an epidural. The patient was completely dilated at 1110. She pushed with Category I to II heart t ones. A viable female infant was delivered at 1211. The was placed on the maternal abdomen and bulb suctioned. The infant was noted to be spontaneously crying. Cord was clamped and cut after a 60-second delay. The was handed off to the pediatric team. Placenta was delivered whole with gentle cord traction at 1216. Oxytocin was started to facilitate uterine tone. It was run wide open due to brisk bleeding. Uterine fundus was found to be firm and below the umbilicus upon fundal massage. Thorough examination of the cervix, vagina, periurethral area, and perineum revealed a large second degree midline perineal laceration. The perineum was infiltrated with lidocaine and repaired with 2-0 and 3-0 Vicryl in the usual fashion. The patient is stable and allowed to begin the bonding process.
[2024-01-21] MEDS ORDERED: ZOLPIDEM 5 MG TAB PO PRN (12:44)
[2024-01-21] MEDS ORDERED: diphenhydrAMINE 25 MG CAP PO PRN (12:44)
[2024-01-21] MEDS ORDERED: HYDROCORTISONE 2.5% RECTAL CREAM 30 GM TUBE RECTAL PRN (12:44)
[2024-01-21] MEDS ORDERED: SIMETHICONE 80 MG CHEWABLE PO PRN (12:44)
[2024-01-21] MEDS ORDERED: BENZOCAINE/MENTHOL SPRAY 1 GM/SPRAY AEROSOL TOPICAL PRN (12:44)
[2024-01-21] MEDS ORDERED: diphenhydrAMINE 50 MG CAP PO PRN (12:44)
[2024-01-21] MEDS ORDERED: LANOLIN CREAM 1 GM TUBE TOPICAL PRN (12:44)
[2024-01-21] MEDS ORDERED: diphenhydrAMINE 50 MG/ML 1 ML VIAL IVP PRN ×2 (12:44)
[2024-01-21] MEDS: IBUPROFEN 800 MG TAB PO SCH (13:07)
[2024-01-21 14:50] LABS: Basophils % (A) 0 %; Eosinophils % (A) 0 %; HCT 39.8 % (34.0-46.0); HGB 13.2 gm/dL (11.4-16.0); Lymphocytes % (A) 7 %; MCH 28.6 pg (25.0-35.0); MCHC 33.2 g/dL (31.0-37.0); MCV 86.1 fL (80.0-100.0); Mean Platelet Volume 8.4; Monocytes # (A) 1.5 k/uL (0-1.0); Monocytes % (A) 5 %; Neutrophils # (A) 24.2 k/uL (1.3-7.7); Neutrophils % (A) 87 %; Platelet Count 400 k/uL (150-450); RBC 4.62 m/uL (3.80-5.40); RDW 14.3 % (11.5-15.5); WBC 27.9 k/uL (3.8-10.6)
[2024-01-21 15:11] LABS: ALT 10 U/L (4-34); AST 23 U/L (14-36); African American GFR (CKD) >90 (>60 ml/min/1.73 sqM); Blood Urea Nitrogen 5 mg/dL (7-17); LDH 288 U/L (120-246); Magnesium 4.8 mg/dL (1.6-2.3); Non-African American GFR(CKD) >90 (>60 ml/min/1.73 sqM); Uric Acid 3.9 mg/dL (3.7-7.4)
[2024-01-21 15:35] LABS: INR 0.8 (<1.2); Prothrombin Time 9.3 sec (10.0-12.5)
[2024-01-21] MEDS: ACETAMINOPHEN TAB 500 MG TAB PO SCH (17:08)
[2024-01-21] MEDS: SENNOSIDES-DOCUSATE SODIUM 1 EACH TAB PO SCH (22:07)
[2024-01-22 08:39] LABS: Basophils % (A) 0 %; Eosinophils # (A) 0.2 k/uL (0-0.7); Eosinophils % (A) 2 %; HCT 30.7 % (34.0-46.0); Lymphocytes # (A) 2.8 k/uL (1.0-4.8); Lymphocytes % (A) 22 %; MCH 28.4 pg (25.0-35.0); MCHC 32.5 g/dL (31.0-37.0); MCV 87.5 fL (80.0-100.0); Mean Platelet Volume 8.6; Monocytes # (A) 0.6 k/uL (0-1.0); Monocytes % (A) 5 %; Neutrophils # (A) 8.8 k/uL (1.3-7.7); Neutrophils % (A) 70 %; Platelet Count 351 k/uL (150-450); RBC 3.51 m/uL (3.80-5.40); RDW 14.6 % (11.5-15.5); WBC 12.7 k/uL (3.8-10.6)
--- NOTE | 2024-01-22 09:01 | P.PNOBGVD ---
Subjective - Subjective Principal diagnosis: s/p vaginal delivery Interval history: The patient is doing well this morning and had no acute events overnight. She has no complaints this morning. She reports minimal lochia, passing flatus, voiding without difficulty, ambulating, and eating/drinking without nausea or vomiting. She is breast feeding her infant without difficulty. She denies chest pain, shortness of breathing, fevers, or chills overnight. She denies pain or swelling in the legs. She has been on Magnesium sulfate during her course and has a few hours remaining. She denies headaches, visual disturbances, and RUQ pain. Patient reports: Reports appetite normal, Reports voiding normally, Reports pain well controlled, Reports ambulating normally : doing well, nursing well Objective - Latest Vital Signs Latest vital signs: Vital Signs Temp Pulse Resp BP BP Pulse Ox 01/22/24 08:00 97.4 F L 96 16 147/96 01/22/24 05:55 89 14 117/61 01/22/24 04:08 93 17 158/92 153/89 100 01/22/24 00:15 97.9 F 94 17 143/87 100 01/21/24 22:07 97.9 F 89 14 132/83 99 01/21/24 20:00 97.5 F L 113 H 17 133/78 100 01/21/24 17:09 98.1 F 104 H 16 134/87 01/21/24 16:00 97.1 F L 113 H 16 140/79 01/21/24 14:20 99 16 140/79 01/21/24 13:55 91 16 144/80 01/21/24 13:40 100 16 138/78 01/21/24 13:25 91 16 140/81 01/21/24 13:10 94 16 153/79 01/21/24 12:55 90 16 135/74 01/21/24 12:40 100 16 141/83 01/21/24 12:25 98.1 F 121 H 16 133/68 Intake and Output 01/21/24 01/22/24 01/22/24 22:59 06:59 14:59 Intake Total 3938 1800 Output Total 3600 1100 Balance 338 700 Intake: Intake, IV Titration 3138 500 Amount Lactated Ringers 1,000 ml 1250 @ 125 mls/hr IV .Q8H [facility] Rx#:[id number] Magnesium Sulfate gm 6 gm 100 In Sodium Chloride 0.9% 100 ml @ 300 mls/hr IVPB ONCE ONE Rx#:[id number] Magnesium Sulfate-Water 900 500 Pmx 20 gm In Water For Injection 1 500ml.bag @ 2 GM/HR 50 mls/hr IV .Q10H [facility] Rx#:[id number] Oxytocin 30 Units/500 ml 688 Ns 30 unit In Saline 1 500ml.bag @ Per Protocol IV .Q0M [facility] Rx#:[id number] Penicillin G Potassium 2, 100 500,000 unit In Dextrose 5% in Water 100 ml @ 100 mls/hr IVPB Q4H [facility] Rx#: [id number] Penicillin G Potassium 5, 100 000,000 unit In Dextrose 5% in Water 100 ml @ 100 mls/hr IVPB ONCE STA Rx#: [id number] Oral 800 1300 Output: Urine 3600 1100 Other: # Voids 1 1 - Exam Extremities: Present: normal Abdomen: Present: normal appearance, soft Uterus: Present: normal, firm - Labs Labs: Abnormal Lab Results - Last 24 Hours (Table) 01/21/24 01/21/24 01/21/24 Range/Units 14:34 14:34 14:34 WBC 27.9 H (3.8-10.6) k/uL RBC (3.80-5.40) m/uL Hgb (11.4-16.0) gm/dL Hct (34.0-46.0) % Neutrophils # 24.2 H (1.3-7.7) k/uL Monocytes # 1.5 H (0-1.0) k/uL PT 9.3 L (10.0-12.5) sec Fibrinogen 544 H (200-500) mg/dL BUN 5 L (7-17) mg/dL Creatinine 0.49 L (0.52-1.04) mg/dL Magnesium 4.8 H (1.6-2.3) mg/dL Lactate Dehydrogenase 288 H (120-246) U/L 01/22/24 Range/Units 08:12 WBC 12.7 H (3.8-10.6) k/uL RBC 3.51 L (3.80-5.40) m/uL Hgb 10.0 L D (11.4-16.0) gm/dL Hct 30.7 L (34.0-46.0) % Neutrophils # 8.8 H (1.3-7.7) k/uL Monocytes # (0-1.0) k/uL PT (10.0-12.5) sec Fibrinogen (200-500) mg/dL BUN (7-17) mg/dL Creatinine (0.52-1.04) mg/dL Magnesium (1.6-2.3) mg/dL Lactate Dehydrogenase (120-246) U/L Assessment and Plan Assessment: 33 year old now PPD#1 s/p normal vaginal delivery after medical induction of labor for pre-eclampsia that progressed to severe features Plan: 1. . Patient meeting all milestones appropriately 2. Pre-eclampsia with SF. Patient finishing 24 hours of Mag SO4 this afternoon. Asymptomatic, BPs normotensive to mild range. On Procardia XL 30mg daily. 3. Viable female . At bedside, nursing well. Dispo: Anticipate discharge home tomorrow morning if BPs stable.
[2024-01-22] MEDS: NIFEdipine XL 30 MG TAB.ER.24 PO SCH (10:09)
[2024-01-22] MEDS: MEASLES-MUMPS-RUBELLA VACC/PF 12,500 UNIT/0.5 ML VIAL SQ ONE ×2 (11:03→20:04)
[2024-01-22] MEDS: FERROUS SULFATE 325 MG TAB PO SCH (12:48)
[2024-01-23 08:07] VITALS: BP 123/75; PULSE 94; RESP 16; TEMP 99.1
--- NOTE | 2024-01-23 08:25 | P.DS ---
Providers Date of admission: 01/21/24 06:03 Expected date of discharge: 01/23/24 Attending physician: Elle Villeda MD Primary care physician: Stated None Hospital Course: Ms. Salazar is a 33 year old now PPD#1 s/p medical induction of labor for pre-eclampsia with severe features. She is now status post 24 hours of Mag SO4 for seizure prophylaxis and blood pressures are normotensive to mild range with Procardia XL 30mg daily. She denies headache, visual changes, RUQ pain, SOB. She desires discharge home today. The patient is doing well this morning and had no acute events overnight. She has no complaints this morning. She reports minimal lochia, passing flatus, voiding without difficulty, ambulating, and eating/drinking without nausea or vomiting. Infant doing well at bedside, nursing well. She denies chest pain, shortness of breathing, fevers, or chills overnight. She denies pain or swelling in the legs. restrictions are reviewed with the patient including pelvic rest for 6 weeks. The patient is encouraged to call the office if she experiences any heavy bleeding, foul-smelling discharge, breast complaints, or any if she has any other concerns. 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 She will follow up in the office with in 6 weeks for exam. All questions are answered. Assessment: 33 year old now PPD#2 s/p mIOL for preE with SF Patient Condition at Discharge: Good Plan - Discharge Summary New Discharge Prescriptions: No Action Aspirin 81 mg PO DAILY Vit No.179/Iron/Folic [ Tablet] 1 tab PO DAILY Acetaminophen Tab [Tylenol] 1,000 mg PO Q4HR PRN PRN Reason: Mild Pain Or Fever >= 100.5 Ferrous Sulfate [Iron] 325 mg PO Discharge Medication List Acetaminophen Tab [Tylenol] 1,000 mg PO Q4HR PRN 12/02/23 [History] Aspirin 81 mg PO DAILY 12/02/23 [History] Vit No.179/Iron/Folic [ Tablet] 1 tab PO DAILY 12/02/23 [History] Ferrous Sulfate [Iron] 325 mg PO 01/21/24 [History] Follow up Appointment(s)/Referral(s): Elle Villeda MD [STAFF PHYSICIAN] - 6 Weeks Activity/Diet/Wound Care/Special Instructions: Instructions 1. Do not begin any exercise program for 3 weeks. 2. Do not resume sexual relations for 6 weeks or longer if uncomfortable. 3. You may take tub baths or showers at any time. 4. You may use tampons if desired after 6 weeks. 5. Keep any areas repaired with stitches clean and dry. 6. If you are not nursing, wear a good fitting, supportive bra during the day and limit fluid intake for at least 1 week to prevent breast engorgement. 7. Call the office, , within the next week to make appointment for your 6 week checkup if it has not already been made. 8. Report any of the following occurrences to the doctor promptly: a. Heavy, excessive bleeding b. Chills, fever c. Burning or frequency of urination d. Pain or redness and breasts if nursing e. Increasing pain or swelling of vulva (stitches). In addition to the above instructions, the following additional should be followed: 1. No heavy lifting or straining (exercising) until after 6 week checkup. 2. Keep abdominal incision clean and dry: You may wear a dressing if more comfortable. 3. Make office appointment for 2 weeks after delivery date. Discharge Disposition: HOME SELF-CARE
== END 2024-01-23 12:19 | disposition home or self-care (01) | DRG 807 ==
LOC: 4FBP 06:03
PROVIDERS: ADMIT Obstetrics & Gynecology; ATTEND Obstetrics & Gynecology
PROC: 10E0XZZ Delivery of Products of Conception, External Approach (ICD-10-PCS; principal; 2024-01-21)
PROC: 0KQM0ZZ Repair Perineum Muscle, Open Approach (ICD-10-PCS; 2024-01-21)
PROC: 3E033VJ Introduction of Other Hormone into Peripheral Vein, Percutaneous Approach (ICD-10-PCS; 2024-01-21)
DX: O14.14 Severe pre-eclampsia complicating childbirth (principal); Z37.0 Single live birth; O70.1 Second degree perineal laceration during delivery; O99.824 Streptococcus B carrier state complicating childbirth; O60.14X0 Preterm labor third trimester with preterm delivery third trimester, not applicable or unspecified; Z3A.37 37 weeks gestation of pregnancy; Z79.82 Long term (current) use of aspirin
CPT/HCPCS: 82565; 83615; 83735; 84450; 84460; 84520; 84550; 85025; 85384; 85610; 85730; 86850; 86900; 86901; 90707